=== PATIENT | male | born 1960 | race Caucasian/White ===

== ENCOUNTER 2020-09-12 14:42 | Observation (INO) | payer BC, OTHER ==
[~2020-09-12] VITALS: Ht 182.9 cm; Wt 108.0 kg
[2020-09-12 15:37] LABS: HEMOGLOBIN 16.9 gm/dl (14.0-17.5); RED BLOOD COUNT 5.83 M/UL (4.20-5.50); WHITE BLOOD COUNT 7.8 K/UL (4.5-11.0)
[2020-09-12 15:59] LABS: BUN/CREATININE RATIO 21 (0-10)
[2020-09-13 06:23] LABS: BUN/CREATININE RATIO 19 (0-10)
[2020-09-13] MEDS ORDERED: OZEMPIC1 MG/0.71 SQ (11:20)
[2020-09-13] MEDS ORDERED: GLUCOPHAGE1000 MG PO (11:20)
[2020-09-13] MEDS ORDERED: CRESTOR5 MG PO (11:21)
[2020-09-13] MEDS ORDERED: ASPIRIN81 MG PO (12:12)
[2020-09-13] MEDS ORDERED: LOPRESSOR 25 MG25 MG PO (12:12)
== END 2020-09-13 16:08 | disposition home or self-care (01) ==
LOC: ER1 14:42 → CDU 18:47 → MED SURG 4 20:17
PROVIDERS: Emergency Medicine; ADMIT Internal Medicine
DX: I47.1 Supraventricular tachycardia (principal); E78.5 Hyperlipidemia, unspecified; E11.9 Type 2 diabetes mellitus without complications; E87.2 Acidosis; R77.8 Other specified abnormalities of plasma proteins; F41.8 Other specified anxiety disorders; E66.9 Obesity, unspecified; Z68.32 Body mass index [BMI] 32.0-32.9, adult; Z20.822 Contact with and (suspected) exposure to COVID-19; Z79.82 Long term (current) use of aspirin; Z79.84 Long term (current) use of oral hypoglycemic drugs; Z79.899 Other long term (current) drug therapy; Z87.891 Personal history of nicotine dependence
CPT/HCPCS: ECHO; 36415; 71045; 80048; 80053; 82550; 82553; 82962; 83036; 83605; 83690; 83735; 84439; 84443; 84484; 85025; 93005; 93306; 96372; 99285; G0378; J0153; J1650; Q9967; U0002